=== PATIENT | male | born 1955 | race Caucasian/White ===

== ENCOUNTER 2017-06-16 16:45 | Emergency (ER) | payer OTHER ==
[~2017-06-16] VITALS: Ht 188 cm; Wt 104.3 kg
[2017-06-16] MEDS ORDERED: Robaxin500 MG PO (18:33)
[2017-06-16] MEDS ORDERED: Percocet 5-3251 EACH PO (18:33)
[2017-06-16] MEDS ORDERED: LIDO700A20 TOP (18:34)
== END 2017-06-16 18:46 | disposition home or self-care (01) ==
LOC: ER 16:45
DX: S22.32XA Fracture of one rib, left side, initial encounter for closed fracture (principal); S27.0XXA Traumatic pneumothorax, initial encounter; S46.912A Strain of unspecified muscle, fascia and tendon at shoulder and upper arm level, left arm, initial encounter; W19.XXXA Unspecified fall, initial encounter; Y92.828 Other wilderness area as the place of occurrence of the external cause
CPT/HCPCS: 71046; 73030; 93005; 93010; 99284